=== PATIENT | female | born 1935 | race African-American/Black ===

== ENCOUNTER 2018-10-07 22:25 | Emergency (ER) | payer MEDICARE, OTHER ==
[2018-10-08] MEDS ORDERED: OXYCODONE-ACETAMINOPHEN 5-325 MG TABLET PO ONE (03:59)
[2018-10-08] MEDS ORDERED: ONDANSETRON 4 MG TAB.RAPDIS PO ONE (03:59)
--- NOTE | 2018-10-08 04:08 | ER Document Report ---
ED Extremity Problem, Lower - General Chief Complaint: Feet Swelling Stated Complaint: LEFT FOOT INJURY Time Seen by Provider: 10/08/18 03:51 Notes: Patient is an 83-year-old female that comes emergency department for chief complaint of left foot pain. She states that she had a bunion scraping by her athletic coach on 09/21/2017, she states since then she has developed some swelling to the area which has increased and now it hurts to walk on the foot. She did not have any open wounds, she denies redness, she denies fever/chills. She does not have diabetes. She does take Plavix. She denies injury to the foot otherwise. She denies any other complaints. Daughter states she was having trouble sleeping because of the throbbing foot. TRAVEL OUTSIDE OF THE [place] IN LAST 30 DAYS: No Past Medical History - General Information source: Patient, Relative - Social History Smoking Status: Never Smoker Drug Abuse: None Lives with: Family Family History: Reviewed & Not Pertinent - Past Medical History Cardiac Medical History: Reports: Hx Coronary Artery Disease, Hx Hypercholesterolemia, Hx Hypertension Past Surgical History: Reports: Hx Cardiac Catheterization - Immunizations Immunizations up to date: Yes Hx Diphtheria, Pertussis, Tetanus Vaccination: Yes Review of Systems - Review of Systems Constitutional: No symptoms reported EENT: No symptoms reported Cardiovascular: No symptoms reported Respiratory: No symptoms reported Gastrointestinal: No symptoms reported Genitourinary: No symptoms reported Female Genitourinary: No symptoms reported Musculoskeletal: See HPI Skin: No symptoms reported Hematologic/Lymphatic: No symptoms reported Neurological/Psychological: No symptoms reported Physical Exam - Vital signs Vitals: Temp Pulse Resp BP Pulse Ox 98.1 F 60 12 178/77 H 96 10/07/18 22:59 10/07/18 22:59 10/07/18 22:59 10/07/18 22:59 10/07/18 22:59 - Notes Notes: GENERAL: Alert, interacts well. No acute distress. HEAD: Normocephalic, atraumatic. EYES: Pupils equal, round, and reactive to light. Extraocular movements intact. ENT: Oral mucosa moist, tongue midline. Oropharynx unremarkable. Airway patent. LUNGS: Clear to auscultation bilaterally, no wheezes, rales, or rhonchi. No respiratory distress. HEART: Borderline bradycardia. Normal rhythm. No murmur. ABDOMEN: Soft, non-tender. Non-distended. EXTREMITIES: Left great toe area and the adjacent area over the dorsum of the foot with soft tissue swelling. There is no abnormal heat, erythema, or noted tenderness to the area. Normal capillary refill and sensation of the foot, normal ankle, leg exam. BACK: no cervical, thoracic, lumbar midline tenderness. No saddle anesthesia, normal distal neurovascular exam. NEUROLOGICAL: Alert and oriented x3. Normal speech. Cranial nerves II through XII grossly intact. PSYCH: Normal affect, normal mood. SKIN: Warm, dry, normal turgor. No rashes or lesions noted. Course - Re-evaluation Re-evalutation: X-ray showing soft tissue swelling, previous bunionectomy, some calcifications of unknown etiology. Area is not erythematous, hot, or notably tender. Range of motion is intact. Does not appear to be septic joint, does not appear to be gout, appears to be soft tissue swelling. Patient is on Plavix and did have the area scraped. Patient already has podiatry follow-up. Patient and daughter stating that patient is having difficulty walking and sleeping at times because of the pain, they are already on the anti-inflammatory given them by the athletic coach, they are requesting for pain as needed. They are provided with this and a stool softener. They are provided with a compression stocking for the swelling, recommended elevation, staying off the foot more, and podiatry follow- up. Discussed return precautions. They state satisfaction agreement. Stable time of discharge. - Vital Signs Vital signs: Temp Pulse Resp BP Pulse Ox 98.6 F 50 L 16 151/69 H 98 10/08/18 05:44 10/08/18 05:44 10/08/18 05:44 10/08/18 05:44 10/08/18 05:44 Discharge - Discharge Clinical Impression: Left foot pain Condition: Stable Disposition: HOME, SELF-CARE Additional Instructions: The evaluation shows soft tissue swelling, no other concerning findings. No evidence of infection at this time. We are trying to get the soft tissue swelling out of the foot. I recommend the compression stocking, elevation, continue your anti-inflammatory, take the pain medication if needed. If you do take the pain medication also take the stool softener to avoid constipation. Follow-up closely with your athletic coach. Return if you worsen including developing redness, fever, severe worsening pain, or any other concerning or worsening symptoms. Prescriptions: Docusate Sodium [Colace 100 mg Capsule] 100 mg PO ASDIR PRN #30 capsule PRN Reason: Oxycodone HCl/Acetaminophen [Percocet 5-325 mg Tablet] 1 tab PO TID #12 tablet
--- NOTE | 2018-10-08 04:32 | RADIOLOGY REPORT (SQ) ---
Left foot three view on 10/08/2018 at 4:17 AM CLINICAL INDICATION: Foot swelling and pain COMPARISON: None FINDINGS: There is mild diffuse osteopenia. The patient appears to be status post bunionectomy. There is significant soft tissue swelling and associated soft tissue calcification adjacent to the bunionectomy. There are no fractures. Plantar calcaneal spur is noted. Visualized joints are well aligned. No other bony abnormality is noted. IMPRESSION: Soft tissue swelling medial to the patient's bunionectomy with associated soft tissue calcification of unknown definite etiology. No acute bony abnormality.
[2018-10-08 05:47] VITALS: BP 151/69
== END 2018-10-08 05:45 | disposition home or self-care (01) ==
LOC: ER 22:25
DX: M79.672 Pain in left foot (principal); M79.89 Other specified soft tissue disorders; I25.10 Atherosclerotic heart disease of native coronary artery without angina pectoris; I10 Essential (primary) hypertension; Z98.890 Other specified postprocedural states; Z79.02 Long term (current) use of antithrombotics/antiplatelets
CPT/HCPCS: 99283; 73630; A9270 ×2; S0119